=== PATIENT | female | born 1970 | race Caucasian/White ===

== ENCOUNTER 2024-07-22 13:34 | Emergency (ER) | payer OTHER ==
[2024-07-22 13:51] VITALS: BP 118/69; PULSE 91; RESP 18; TEMP 98.2; BMI 28.6
[2024-07-22] MEDS ORDERED: IBUPROFEN 400 MG TABLET (FP) PO ONE (14:27)
[2024-07-22] MEDS: IBUPROFEN 400 MG TABLET (FP) PO ONE (14:30)
== END 2024-07-22 16:15 | disposition home or self-care (01) ==
LOC: FER 13:34
DX: M25.572 Pain in left ankle and joints of left foot (principal); W18.39XA Other fall on same level, initial encounter; X50.1XXA Overexertion from prolonged static or awkward postures, initial encounter
CPT/HCPCS: 73610-TC-LT-FY; 73630-TC-LT; 99283-25